=== PATIENT | male | born 2000 | race Caucasian/White ===

== ENCOUNTER 2022-04-30 15:12 | Emergency (ER) | payer OTHER ==
[~2022-04-30] VITALS: Ht 180.3 cm; Wt 130.9 kg
[2022-04-30 17:23] LABS: GC DNA AMPLIFICATION NEGATIVE (NEGATIVE)
[2022-04-30] MEDS ORDERED: LEVO1TAB39 PO (19:02)
[2022-04-30] MEDS ORDERED: LevoFLOXacin 500 MG TABLET PO ONE (19:10)
[2022-04-30 19:11] VITALS: BP 130/65
== END 2022-04-30 19:23 | disposition home or self-care (01) ==
LOC: M ED 15:12
DX: N45.2 Orchitis (principal)